=== PATIENT | male | born 1960 | race Caucasian/White ===

== ENCOUNTER 2024-09-19 14:32 | Inpatient (IN) | payer OTHER, MEDICARE, SELFPAY ==
[2024-09-19] VITALS (27 sets, daily range): BP systolic 111–156; BP diastolic 64–100; PULSE 58–102; RESP 12–24; TEMP 36.3–36.7; O2SAT 95–99; BMI 25.7; BMI 24.2
--- NOTE | 2024-09-19 14:33 | EKG12_ITS ---
Test Reason : STROKE Blood Pressure : */* mmHG Vent. Rate : 84 BPM Atrial Rate : 84 BPM P-R Int : 160 ms QRS Dur : 82 ms QT Int : 366 ms P-R-T Axes : 71 18 16 degrees QTcB Int : 432 ms Normal sinus rhythm Inferior infarct , age undetermined Abnormal ECG Confirmed by JEREL STERLING MD ([id number]), telegraph editor OLIVIA CHATMAN ([id number]) on 09/22/2024 9:16:50 AM Referred By: Confirmed By: JEREL STERLING MD
--- NOTE | 2024-09-19 14:33 | CT_ITS ---
PROCEDURE: STROKE BRAIN/HEAD WITHOUT CONT 09/19/2024 REASON FOR EXAM: NEURO DEFICIT, ACUTE, STROKE SUSPECTED TECHNIQUE: STROKE BRAIN/HEAD WITHOUT CONT Coronal and Sagittal reconstruction series were provided. One or more dose reduction techniques were used (e.g., Automated exposure control, adjustment of the mA and/or kV according to patient size, use of iterative reconstruction technique. RADIATION DOSE SUMMARY: CTDlvol: 45 mGy DLP: 1575 mGycm COMPARISON: None FINDINGS: Brain: There is no evidence of hemorrhage, acute ischemia or mass. No extra- axial fluid collection, midline shift or mass effect. Minimal low-density in the periventricular white matter. CSF Spaces: Mild generalized cerebral atrophy Sinuses/Mastoids: Clear Bones: No fracture. CT/STROKE Brain/Head without Cont IMPRESSION: 1. No evidence of intracranial hemorrhage or acute ischemia. 2. Minimal changes of chronic microvascular ischemia and volume loss. The findings and impression of the report were called directly to Dr. Steele at 2:50 p.m. Eastern standard time. Reading Location: [id number]
--- NOTE | 2024-09-19 14:35 | ED.VIS.STROK ---
HPI History of Present Illness Chief Complaint: Stroke Alert Informant: patient and EMS Onset/Context/Timing Onset: Today Context: Sudden Onset Timing: Continuous Quality and Location: Positive for Right Facial Droop and Slurred Speech Current Severity: Severe Maximum Severity: Severe Associated Symptoms Associated Symptoms: Positive for Headache; Negative for Nausea, Vomiting or Chest Pain Narrative Narrative: 64-year-old male with history of CAD, on Plavix and aspirin. Recent acute 4.0s Plavix held just restarted. Today was driving and felt he could throw up and he had sudden onset of slurred speech and right facial droop. Last known well time is 2 PM. Prior similar symptoms: No Recent Illness/Hospitalization: No PFSH PFSH Allergy/AdvReac Type Severity Reaction Status Date / Time Unable to Assess Allergy Verified 09/19/24 14:40 ROS ROS ED ROS Narrative Denies recent illness. Constitutional Constitutional ED: Denies chills or fever(s) Eyes Eyes: Denies blurry vision ENT ENT ED: Denies ear pain Cardiovascular Cardiovascular: Denies chest pain Respiratory/Chest Respiratory/Chest: Denies cough or dyspnea Gastrointestinal Gastrointestinal: Denies abdominal pain Genitourinary Genitourinary ED: Denies dysuria or hematuria Musculoskeletal Musculoskeletal: Denies arthralgias Integumentary Denies abscess or Abrasions Neurologic Neurologic: Reports headache(s) Psychiatric Psychiatric: Denies anxiety Endocrine Endocrinology: Denies polydipsia Hematologic/Lymphatic Hematologic/Lymphatic: Denies easy bleeding, easy bruising or lymphadenopathy Allergic/Immunologic Allergic/Immunologic ED: Denies mouth swelling or urticaria EXAM Physical Exam Narrative Exam Narrative: 64-year-old male brought in by EMS sitting upright in cot in the triage ambulance bay. H EENT exam pupils round react light. Extra motions are intact. He does have a right facial droop. He is very slurred speech very difficult to understand. Moist mucous membranes. No trauma to his face or scalp. Neck nontender. Lungs clear to auscultation bilaterally. Heart regular rhythm rate about 80 no murmur. Chest wall and ribs nontender. Abdomen soft nontender. Moving all 4 extremities. Normal industrial painter strength bilaterally. Normal dorsi plantarflexion. Neurologically he is awake. He has very slurred speech and right facial droop. He has normal strength of his upper and lower extremities. Const Vital Signs: 09/19/24 14:33 09/19/24 14:36 09/19/24 14:43 Temperature 97.8 F Temperature Source Temporal Pulse Rate 102 H 89 Respiratory Rate 18 21 H Blood Pressure 156/98 H 150/88 H Blood Pressure Mean 117 108 Blood Pressure Source Monitor Blood Pressure Position Semi-Fowlers Blood Pressure Location Left Arm Pulse Ox 98 95 Oxygen Delivery Method Room Air Room Air Room Air 09/19/24 14:53 09/19/24 14:58 Temperature Temperature Source Pulse Rate 89 Respiratory Rate 20 H Blood Pressure 150/88 H 140/97 H Blood Pressure Mean 111 Blood Pressure Source Monitor Blood Pressure Position Semi-Fowlers Blood Pressure Location Left Arm Pulse Ox 97 Oxygen Delivery Method Room Air Positive well nourished and well developed; Negative for obese, cachectic, contractures or unkempt General Appearance ED: well developed; Negative for unkempt, cachectic, contractures or NAD Nutritional Appearance: Negative for cachectic or obese HEENT Reports moist mucous membranes atraumatic Eyes PERRL and EOMs intact bilaterally Eyes Narrative: Right facial droop. Neck no lymphadenopathy, supple and no JVD General: Negative for tenderness Chest Wall inspection of chest normal and palpation of chest normal Resp normal respiratory effort and clear to auscultation bilaterally Cardio no murmurs Rate: regular rate Rhythm: regular rhythm GI normal to inspection, nondistended, normoactive bowel sounds, soft to palpation, non-tender, non-distended and no masses Auscultation: normoactive bowel sounds Palpation: Negative for tender, guarding or rebound tenderness present Back/Spine no CVA tenderness Extremity normal to inspection General Extremety ED: Negative for deformity, edema or tenderness General Extremity: Negative for deformity or edema Neuro Neuro Narrative: Right facial droop. Slurred speech. Sensorium / Orientation: alert Speech: Negative for speech normal Motor Exam: strength 5/5 throughout Psych mental status grossly normal Appearance: Negative for unkempt Skin no wounds General Skin Exam: Negative for jaundice Rashes: no rashes Trauma: Negative for abrasion or laceration MDM MDM MDM Narrative Medical decision making narrative: 64-year-old male history of CAD on Plavix and aspirin with strokelike symptoms began around 2 PM. He is admitted to stroke candidate. He is currently in radiology and a CT of his brain and CTA. I will speak to the stroke neurologist when he gets back from CAT scan of his testing. Repeat exam post CAT scan has been no change. He is still has very slurred speech and right facial droop. He can industrial painter with his hands and do dorsi plantarflexion of his feet. I spoken with the patient also his and daughter who are now in the emergency department. They spoken to another family member that is a nurse practitioner. All are okay with him getting TNK. I discussed that with the pharmacist who also knows the patient is currently on aspirin and Plavix. We are still waiting the [facility] neurology evaluation. TNK has been ordered. Repeat exam around 2:55 PM. Patient is already received his TN K. His speech is improving. His facial droop is improving. He has been evaluated by the [facility] neurologist. Patient will be admitted. Currently his NIH is back to 0. No facial droop. Speech is back to normal. History & Record Review Discussion w/independent historian: EMS personnel and Patient Lab Data Attestation: I reviewed the patient's lab results. Lab results narrative: CBC white count 8. H&H 15 and 43. Platelets 284. PT/INR [address] brain no acute bleed. Labs: Laboratory Results - last 24 hr 09/19/24 14:45 WBC 8.3 RBC 4.69 Hgb 15.3 Hct 43.1 MCV 91.9 MCH 32.6 H MCHC 35.5 RDW Std Deviation 40.7 RDW Coeff of Jacquelyn 12.1 Plt Count 284 MPV 9.8 Immature Gran % (Auto) 0.400 Neut % (Auto) 55.3 Lymph % (Auto) 30.1 Bulloch % (Auto) 12.0 H Eos % (Auto) 1.5 Baso % (Auto) 0.7 Absolute Neuts (auto) 4.6 Absolute Lymphs (auto) 2.48 Nucleated RBC % 0 PT 13.8 INR 1.0 APTT 26.8 Radiography Diagnostic Testing: Clinical Impression(s) from Imaging Studies Brain CT 09/19/24 14:33 IMPRESSION: 1. No evidence of intracranial hemorrhage or acute ischemia. 2. Minimal changes of chronic microvascular ischemia and volume loss. The findings and impression of the report were called directly to Dr. Steele at 2:50 p.m. Eastern standard time. Reading Location: [facility] Head/Neck CTA 09/19/24 14:38 IMPRESSION: 1. Atherosclerosis of the carotid bulb and proximal internal carotid arteries. Less than 50% narrowing on the left and less than 25% narrowing on the right. 2. No large vessel occlusion. No aneurysm or stenosis. Reading Location: [facility] Rhythm Strip Rhythm Strip: Sinus Rhythm Rate: 84 Ectopy: None EKG Initial EKG: Attestation: I personally reviewed and interpreted this EKG as follows: Interpretation: Sinus Rhythm and No Acute Injury Pattern Comments: NSR rate of 84. No acute signs of TX nor ischemia nor dysrhythmia. Critical Care Time Critical Care Time: Yes Critical care time (excluding procedures): 30-74 minutes, Including time spent:, Discussing w/Patient &/or Family/Senior Air Director, Discussing w/Consultants, Arranging Admission or Transfer, Performing Direct Patient Care at Bedside and - (35 minutes.) Discharge Plan Triage Chief Complaint: Stroke Alert ED Provider: Luis Antonio Steele Dx/Rx/DC Orders Clinical Impression: Acute stroke due to ischemia, Dysarthria, Facial droop, History of CAD (coronary artery disease) Primary Care Provider: Care Physician,Zina Primary Referrals: NOT,DEFINED [Non-Staff] - Print Language: Afghan NIHSS NIHSS 1a. Level of Consciousness: 0 - Alert; keenly responsive 1b. LOC Questions: 0 - Answers BOTH questions correctly 1c. LOC Commands: 0 - Performs BOTH tasks correctly 2. Best Gaze: 0 - Normal 3. Visual: 0 - No visual loss 4. Facial Palsy: 2 - Partial paralysis (total or near-total paralysis of lower face) 5a. Left Arm: 0 - No drift; arm holds 90 (or 45) degrees for full 10 seconds 5b. Right Arm: 0 - No drift; arm holds 90 (or 45) degrees for full 10 seconds 6a. Left Le - No drift; leg holds 30-degree position for full 5 seconds 6b. Right Le - No drift; leg holds 30-degree position for full 5 seconds 7. Limb Ataxia: 0 - Absent 8. Sensory: 0 - Normal; no sensory loss 9. Best Language: 2 - Severe aphasia; 10. Dysarthria: 0 - Normal 11. Extinction and Inattention: 0 - No abnormality Total: 4 Stroke Questions Stroke Team Activated: Yes Reviewed Inclusion/Exclusion criteria: Yes No contraindications from thrombolytic administration: No Informed the patient and/or family of all associated risks, benefits, & alternatives to IV Thrombolytic Therapy. Patient and/or family voluntarily consent to the administration of IV Thrombolytic Therapy: Yes
--- NOTE | 2024-09-19 14:38 | CT_ITS ---
PROCEDURE: STROKE CTA HEAD AND NECK W/CON 09/19/2024 REASON FOR EXAM: STROKE TECHNIQUE: STROKE CTA HEAD AND NECK W/CON Multiplanar Sagittal and Coronal images were obtained. 3D post processing was performed CONTRAST: Isovue 370 VOLUME: 100 mL One or more dose reduction techniques were used (e.g., Automated exposure control, adjustment of the mA and/or kV according to patient size, use of iterative reconstruction technique). RADIATION DOSE SUMMARY: CTDlvol: 42 mGy DLP: 705 mGycm COMPARISON: September 19, 2024 FINDINGS: Aortic Arch: Normal size and branching pattern. Mild atherosclerotic plaque. Brachiocephalic and Subclavians: Mild atherosclerotic plaque without significant stenosis. The left subclavian is tortuous at its origin. RIGHT Carotid: Right CCA: Eccentric mural plaque at the carotid bulb with less than 25% narrowing. Right ICA: Mild calcified and soft plaque. Maximum stenosis (NASCET): Less than 25 % Right ECA: Mild calcified and soft plaque. LEFT Carotid: Left CCA: Eccentric mural plaque at the carotid bulb to include some soft plaque. Less than 50% narrowing. Left ICA: Mild calcified and soft plaque. Maximum stenosis (NASCET): 16-49 % Left ECA: Unremarkable. Vertebrals: Left is dominant. RIGHT Vertebral: PICA termination. Otherwise patent. LEFT Vertebral: Patent, dominant. Anatomy: Patent right posterior communicating artery. Otherwise unremarkable Aneurysm or avm: No intracranial aneurysms or large vascular malformations are identified. Anterior cerebral arteries: Unremarkable Middle cerebral arteries: Unremarkable. Basilar artery: Unremarkable. Posterior cerebral arteries: Unremarkable. Other major branches of the posterior circulation: Unremarkable. Major venous structures: Unremarkable. Other findings: Neck: No lymphadenopathy. Lungs: Lung apices are clear. Bones: Bones are degenerative. CT/STROKE CTA Head AND Neck W/Con IMPRESSION: 1. Atherosclerosis of the carotid bulb and proximal internal carotid arteries. Less than 50% narrowing on the left and less than 25% narrowing on the right. 2. No large vessel occlusion. No aneurysm or stenosis. Reading Location: [facility]
[2024-09-19] MEDS: 0.9% Saline Lock 10 ML Syringe IV ×2 (14:52→14:54)
[2024-09-19] MEDS: TENECTEPLASE 2851.2 MG IV (14:53)
[2024-09-19] MEDS: 0.9% Normal Saline (1000mL) 1,000 ML 100 ML IV (14:55)
--- NOTE | 2024-09-19 14:57 | ED.RN ---
catheter attempted to be placed at this time, unable to advance.
[2024-09-19 15:03] LABS: Hematocrit 43.1 % (40-54); Hemoglobin 15.3 g/dL (13.0-16.5); Immature Granulocytes Count 0.030 X10^3/uL (0.0-0.0); Mean Corp Hgb Conc 35.5 g/dL (32-36); Mean Corpuscular Volume 91.9 fL (80-94); Mean Platelet Vol. 9.8 fl (6.2-12.0); NRBC Flagged by Analyzer 0 % (0-5); Platelet Count 284 K/mm3 (150-450); RBC Distribution Width CV 12.1 % (11.6-14.6); RBC Distribution Width SD 40.7 fl (35.1-43.9); Red Blood Count 4.69 M/mm3 (4.6-6.2); White Blood Count 8.3 K/mm3 (4.4-11.0)
[2024-09-19 15:07] LABS: Prothrombin Time (Protime)PT. 13.8 SECONDS (11.7-14.9)
[2024-09-19 15:08] LABS: Partial Thromboplast Time 26.8 Seconds (24.1-36.2)
[2024-09-19 15:26] LABS: Anion Gap 15 (5-15); BUN 24 mg/dL (4-19); BUN/Creat Ratio 21.5 RATIO (10-20); Calcium,Total 9.8 mg/dL (7.6-11.0); Carbon Dioxide 21.8 mmol/L (21.0-32.0); Chloride 104 mmol/L (98-108); Estimated Creatinine Clearance 66.95 ml/min (50-250); Glucose 122 mg/dL (70-99); Potassium 3.6 mmol/L (3.3-5.1)
--- NOTE | 2024-09-19 15:27 | CHAPLAIN ---
Type of Pastoral Visit ___ Initial Visit ___ Follow-up Visit ___ On-call Visit ___ General Patient Visit ___ Spiritual Assessment ___ Family Conference ___ Bereavement _x__ Rapid Response ___ Code Blue ___ Other (describe below) Pastoral Care Referral From ___ Patient ___ Family ___ Nurse ___ Physician ___ Fire Alarm Repairer ___ Senior Telecommunications Consultant _x__ Other (describe below) Sacrament/Intervention ___ Active listening ___ Anointing ___ Buddhism ___ Bereavement ___ Communion ___ Diamante exploration ___ ___ Life review ___ Prayer ___ Reconciliation ___ Sacrament of Sick _x__ Supportive presence ___ Wedding ___ Other (describe below) Pastoral Comments responded to stroke alert in the ED and was present when family members arrived on the scene; assisted spouse in making contacts with staff; was present for any needs presented as patient is being evaluated by staff
[2024-09-19 15:41] LABS: Troponin T High Sensitivity < 6 ng/L (<=22)
--- NOTE | 2024-09-19 16:09 | ED.RN ---
Per family at bedside pt's speech is at baseline. He always mumbles a little. Pt also had recent dental worl
--- NOTE | 2024-09-19 16:19 | HP.PCM.HOS_ITS ---
HPI - General General Date of Admission: 09/19/24 Date of Service: 09/19/24 Chief Complaint: Aphasia, right facial droop and r arm weakness HPI Narrative EMMANUEL ELY, is a 64-year-old male with a history of coronary artery disease on Plavix and aspirin, recent tooth extraction so Plavix had been held and he just restarted, presented to [facility] ED 09/19/2024 with right facial droop and slurred speech. He was driving today and felt like he could throw up and suddenly had slurred speech and right facial droop with last known well at 2 PM so he came to the ED. In the ED NIH of 4, given the significant difficulties with speech TNK was administered and patient evaluated by teleneurology. In the ED vitals, labs, imaging without significant abnormality. Patient symptoms completely resolved. Hospitalist contacted for admission for post TNK monitoring and stroke workup. Patient evaluated at bedside. He reports he was passenger in the car when he suddenly could not get words out, had right facial droop and right arm weakness. Denied any vision changes or headache, no chest pain. Currently reports symptoms completely resolved, has some bleeding where he had a tooth extraction in his mouth but it is currently manageable with pressure and gauze. Patient denies any other new acute complaints [facility] Home Medications ?Medication ?Instructions ?Recorded ?Last Taken ?Type aspirin 81 mg tablet,delayed 81 mg PO DAILY heart heal th 09/19/24 09/13/24 History release clopidogrel 75 mg tablet 75 mg PO DAILY blood thinner 09/19/24 09/18/24 History rosuvastatin 40 mg tablet 40 mg PO DAILY cholesterol 0 09/19/24 09/18/24 History Allergy/AdvReac Type Severity Reaction Status Date / Time Unable to Assess Allergy Verified 09/19/24 14:40 Social History Smoking Status: Never smoker ROS ROS Narrative General: Denies fever/chills HENT: Denies headache, denies stuffy nose, denies sore throat EYES: Denies changes in vision Resp: Denies cough, denies shortness of breath Cardiac: Denies chest pain GI: Denies abdominal pain, denies changes in bowel, denies nausea/vomiting : Denies changes in urination Extremity: Denies swelling MSK: Denies weakness, now, did have weakness in right upper extremity and right- sided facial droop, aphasia resolved Neuro: Denies any numbness/tingling Heme: Denies any bleeding or bruising Skin: Denies rashes Psychiatric: No complaints voiced Vital Signs Vital Signs Vital Signs: 09/19/24 14:33 09/19/24 14:36 09/19/24 14:43 Temperature 97.8 F Temperature Source Temporal Pulse Rate 102 H 89 Respiratory Rate 18 21 H Blood Pressure 156/98 H 150/88 H Blood Pressure Mean 117 108 Blood Pressure Source Monitor Blood Pressure Position Semi-Fowlers Blood Pressure Location Left Arm Pulse Ox 98 95 Oxygen Delivery Method Room Air Room Air Room Air 09/19/24 14:53 09/19/24 14:58 09/19/24 15:13 Temperature Temperature Source Pulse Rate 89 83 Respiratory Rate 20 H 24 H Blood Pressure 150/88 H 140/97 H 136/93 H Blood Pressure Mean 111 107 Blood Pressure Source Monitor Monitor Blood Pressure Position Semi-Fowlers Semi-Fowlers Blood Pressure Location Left Arm Left Arm Pulse Ox 97 95 Oxygen Delivery Method Room Air Room Air 09/19/24 15:26 09/19/24 15:28 09/19/24 15:43 Temperature 97.8 F 97.5 F L Temperature Source Temporal Oral Pulse Rate 81 76 79 Respiratory Rate 16 12 14 Blood Pressure 156/68 H 144/98 H 146/85 H Blood Pressure Mean 97 113 105 Blood Pressure Source Monitor Monitor Blood Pressure Position Semi-Fowlers Semi-Fowlers Blood Pressure Location Left Arm Left Arm Pulse Ox 96 97 96 Oxygen Delivery Method Room Air Room Air Room Air 09/19/24 15:58 Temperature 98 F Temperature Source Temporal Pulse Rate 79 Respiratory Rate 15 Blood Pressure 137/82 H Blood Pressure Mean 100 Blood Pressure Source Monitor Blood Pressure Position Semi-Fowlers Blood Pressure Location Left Arm Pulse Ox 96 Oxygen Delivery Method Room Air Weight Weight: 79 kg Body Mass Index (BMI) 25.7 Physical Exam Narrative General: Alert, oriented, no apparent distress HEENT: Atraumatic, normocephalic, does have the tooth extractions, has some bruising but presently has gauze to evaluate back and mouth and hold pressure Eyes: Anicteric, normal conjunctiva, extraocular movements intact, pupils equal Neck: Supple Respiratory: Clear to auscultation bilaterally, normal respiratory effort Cardiovascular: Regular rate and rhythm GI: Soft, nontender, nondistended Extremities: No edema Musculoskeletal: Strength 5 out of 5 in right upper extremity, 5 out of 5 left upper extremity, 5 out of 5 right lower extremity, 5 out of 5 left lower extremity Neuro: No overt focal neurological deficits, cranial nerves II through XII intact, [id number] without significant difficulty bilaterally Skin: No rashes appreciated Psych: Cooperative Results Lab / Micro Data 09/19/24 14:45 09/19/24 14:45 Labs: Laboratory Results - last 24 hr 09/19/24 14:45: WBC 8.3, RBC 4.69, Hgb 15.3, Hct 43.1, MCV 91.9, MCH 32.6 H, MCHC 35.5, RDW Std Deviation 40.7, RDW Coeff of Jacquelyn 12.1, Plt Count 284, MPV 9.8, Immature Gran % (Auto) 0.400, Neut % (Auto) 55.3, Lymph % (Auto) 30.1, Dickson % (Auto) 12.0 H, Eos % (Auto) 1.5, Baso % (Auto) 0.7, Absolute Neuts (auto) 4.6, Absolute Lymphs (auto) 2.48, Nucleated RBC % 0, PT 13.8, INR 1.0, APTT 26.8, Sodium 140, Potassium 3.6, Chloride 104, Carbon Dioxide 21.8, Anion Gap 15, BUN 24 H, Creatinine 1.10, Estim Creat Clear Calc 66.95, Est GFR (MDRD) Non-Af 74, B UN/Creatinine Ratio 21.5 H, Glucose 122 H, Calcium 9.8, Troponin T High Sens < 6 Rhythm Strip Rhythm Strip: Sinus Rhythm Rate: 84 Ectopy: None Imaging Radiology Impression Brain CT 09/19/24 14:33 IMPRESSION: 1. No evidence of intracranial hemorrhage or acute ischemia. 2. Minimal changes of chronic microvascular ischemia and volume loss. The findings and impression of the report were called directly to Dr. Steele at 2:50 p.m. Eastern standard time. Reading Location: [id number] Head/Neck CTA 09/19/24 14:38 IMPRESSION: 1. Atherosclerosis of the carotid bulb and proximal internal carotid arteries. Less than 50% narrowing on the left and less than 25% narrowing on the right. 2. No large vessel occlusion. No aneurysm or stenosis. Reading Location: [id number] Assessment & Plan Assessment/Plan (1) Acute stroke due to ischemia: PLAN: Plan #Acute CVA s/p TNK -Right sided facial droop and slurred speech status post TNK, symptoms resolved -Admit to ICU w/ strict blood pressure parameters -Blood pressure must be maintained at or below 180/105 mmHg during the first 24 hours, Labetolol prn for BP goals, nicardipine if unable to manage w/ labetolol -VS and neurochecks per protocol, Vital signs and neurologic status should be checked every 15 minutes for two hours, then every 30 minutes for six hours, then every 60 minutes until 24 hours from the start of thrombolysis -Ta catheter placed, bed rest for 24 hours -C/s building economist -C/s Neurology -MRI ordered, will need repeat imaging prior to transfer to the floor and prior to any antithrombotic or antiplatelet agents -Echo ordered, PT/OT/speech -Atorvastatin -Lipid panel in AM # History of coronary artery disease -Patient on Plavix and aspirin -Received TN K, will hold as above # Tooth extraction -Monitor bleeding, supportive care - Presently manageable with patient holding pressure with gauze, no copious bleeding or difficulty maintaining airway #DVT ppx: SCDs Charges/Coding Visit Charges Inpatient E&M: 85980 Init Hosp L2
--- NOTE | 2024-09-19 16:43 | ECHOD_ITS ---
Reason For Study Reason For Study: TIA/CVA Procedure This was a 2D Doppler, Color Flow transthoracic echocardiogram. Exam performed portable in ICU/CCU. Left Ventricle Normal left ventricle. Left ventricular systolic function is normal. The LV ejection fraction is 65 %. Right Ventricle Normal right ventricle. Normal systolic function. Right ventricular systolic pressure estimated to be 21 mmHg. Atria Normal left atrium. Normal right atrium. Mitral Valve The mitral valve is structurally normal. No prolapse or stenosis seen. No mitral valve insufficiency. Tricuspid Valve Normal tricuspid valve. Aortic Valve Moderate diffuse aortic valve calcification. Bicuspid aortic valve. There is no aortic stenosis. Pulmonic Valve Mild stenosis of the pulmonic valve. Mild (1+) pulmonic valve insufficiency. Great Vessels Inferior vena cava collapse with respiration. Pericardium/Pleural Epicardial fat. MMode/2D Measurements & Calculations LVIDd: 4.7 cm IVSd: 1.2 cm LVOT diam: 2.0 cm LVIDs: 2.7 cm LVPWd: 0.89 cm LVOT area: 3.3 cm2 RVDd: 4.5 cm FS: 41.6 % asc Aorta Diam: 3.2 cm LAV(MOD-bp): 28.4 ml LVAd ap4: 26.0 cm2 LAV(MOD-bp) Indexed: 14.6 ml/m2 LVLd ap4: 8.2 cm LAV(MOD-sp2): 27.3 ml EDV(MOD-sp4): 68.5 ml LAV(MOD-sp4): 29.6 ml EDV(sp4-el): 69.8 ml LVAs ap4: 14.2 cm2 LVLs ap4: 7.0 cm ESV(MOD-sp4): 24.6 ml ESV(sp4-el): 24.5 ml EF(MOD-sp4): 64.1 % EF(sp4-el): 64.9 % LVAd ap2: 22.5 cm2 SV(MOD-sp4): 43.9 ml SV(MOD-sp2): 37.8 ml LVLd ap2: 7.9 cm SI(MOD-sp4): 22.5 ml/m2 SI(MOD-sp2): 19.4 ml/m2 EDV(MOD-sp2): 54.8 ml EDV(sp2-el): 54.9 ml LVAs ap2: 11.7 cm2 LVLs ap2: 6.7 cm ESV(MOD-sp2): 17.0 ml ESV(sp2-el): 17.3 ml EF(MOD-sp2): 69.0 % SV(sp4-el): 45.3 ml Ao sinus diam: 3.[address] Junction: 2.5 cm LA dimension(2D): 3.8 cm LA A4 area: 13.0 cm2 RA A4 area: 11.5 cm2 TAPSE: 1.7 cm Time Measurements MV dec time: 0.24 sec Doppler Measurements & Calculations MV E max dhaval: 70.4 cm/sec Lat Peak E' Dhaval: 12.1 cm/sec Med Peak E' Dhaval: 10.1 cm/sec MV A max dhaval: 68.2 cm/sec E/E' lat: 5.8 E/E' med: 7.0 MV E/A: 1.0 MV dec slope: 296.7 cm/sec2 Ao V2 max: 192.2 cm/sec LV V1 max: 109.6 cm/sec Ao max P.8 mmHg LV V1 max P.8 mmHg Ao V2 mean: 140.1 cm/sec LV V1 mean P.3 mmHg Ao mean P.4 mmHg LV V1 mean: 69.2 cm/sec Ao V2 VTI: 40.8 cm LV V1 VTI: 24.1 cm AV (velocity ratio): 0.59 JAN(I,D): 1.9 cm2 JAN(V,D): 1.9 cm2 SV(LVOT): 79.2 ml PA V2 max: 117.6 cm/sec PI end-d dhaval: 56.5 cm/sec TR max dhaval: 222.2 cm/sec TR max P.7 mmHg ECHO/Echo Complete Interpretation Summary The LV ejection fraction is 65 %. Normal left ventricle. Epicardial fat. Mild (1+) pulmonic valve insufficiency. Ordering Physician: Nicole Estrada Performed By: Nasrin Gomes RDCS
[2024-09-19 18:42] LABS: Troponin T High Sens 2 HR 7 ng/L (<=22)
--- NOTE | 2024-09-19 19:21 | CON.PCM.CC_ITS ---
HPI Consult Data Date of Consult: 09/19/24 HPI Narrative HPI Narrative: EMMANUEL ELY, is a 64 M w/ CAD s/p PCI on ASA/plavix who was admitted for possible stroke. He had tooth extraction done yesterday and was off ASA/plavix for this, only just restarted now. While being driven in the car he developed sudden R facial droop, slurred speech, nausea and so was brought to [place] ED. He was seen by teleneurology and was given TNK for suspected CVA. Since that he has had near complete resolution of all of his sx, and feels nearly back to baseline. No prior h/o CVA. He has had some bleeding from his tooth after TNK, but improving with packing. Has not smoked tobacco in decades, denies heavy EtOH use. ROS: 12-point ROS negative except as per HPI PFSH Home Medications ?Medication ?Instructions ?Recorded ?Last Taken ?Type aspirin 81 mg tablet,delayed 81 mg PO DAILY heart heal th 09/19/24 09/13/24 History release clopidogrel 75 mg tablet 75 mg PO DAILY blood thinner 09/19/24 09/18/24 History rosuvastatin 40 mg tablet 40 mg PO DAILY cholesterol 0 09/19/24 09/18/24 History Allergy/AdvReac Type Severity Reaction Status Date / Time Unable to Assess Allergy Verified 09/19/24 14:40 Social History Smoking Status: Never smoker Objective Data Objective Data Vital Signs: Vital Signs Last response 3 Temperature 36.7 C 09/19/24 18:13 Temperature Source Temporal 09/19/24 18:13 Pulse Rate 76 09/19/24 18:43 Respiratory Rate 16 09/19/24 18:43 Blood Pressure 135/64 H 09/19/24 18:43 Blood Pressure Mean 87 09/19/24 18:43 Blood Pressure Source Monitor 09/19/24 18:43 Blood Pressure Position Semi-Fowlers 09/19/24 18:43 Blood Pressure Location Right Arm 09/19/24 18:43 Pulse Ox 99 09/19/24 18:43 Oxygen Delivery Method Room Air 09/19/24 18:43 I&O: I&O Last 24 Hours 3 09/18/24 09/19/24 09/19/24 23:59 11:59 23:59 Intake Total 0 / 0 Output Total 200 / 200 Balance -200 / -200 I&O: Total Stay 3 09/19/24 14:32 thru 09/19/24 18:00 Intake Total 0 Output Total 200 Balance -200 Current Meds Ordered / Administered: Current meds ordered / Administered 3 Generic Name Dose Route Start Last Admin Trade Name Freq PRN Reason Stop Dose Admin Acetaminophen 650 mg 09/19/24 14:43 Acetaminophen 325 Mg Tablet PO X1 PRN Temp > 99.6 F Acetaminophen 650 mg 09/19/24 16:43 Acetaminophen 325 Mg Tablet PO Q6H PRN PRN Pain 1-10 Or Fever >100.7 Albuterol Sulfate 2.5 mg 09/19/24 16:43 Albuterol 2.5 Mg/3 Ml Vial.Neb. INHALATION Q2H PRN PRN SOB &/OR WHEEZING Atorvastatin Calcium 80 mg 09/19/24 22:00 Atorvastatin Calcium 80 Mg Tablet PO QHS JASE Diphenhydramine HCl 50 mg 09/19/24 14:43 Diphenhydramine 50 Mg/Ml Syringe IV 09/20/24 14:43 X1 PRN Allergic Reaction Epinephrine HCl 0.3 mg 09/19/24 14:43 Epi Pen (Equiv) 0.3 Mg Syringe IM 09/20/24 14:43 X1 PRN Allergic Reaction Famotidine 20 mg/ Sodium 10 mls @ 300 mls/hr 09/19/24 14:43 Chloride IV 09/20/24 14:43 X1 PRN Allergic Reaction Nicardipine/Sodium Chloride 20 mg in 200 mls @ 50 mls/hr 09/19/24 14:43 Cardene-Tin 20 Mg/200 Ml Soln CONT INF 09/20/24 14:43 Q4H PRN See Instructions Protocol 5 MG/HR Sodium Chloride 1,000 mls @ 100 mls/hr 09/19/24 14:45 09/19/24 14:55 IV 100 mls/hr .Q10H JASE Administration Labetalol HCl 20 mg 09/19/24 14:32 Labetalol 20 Mg/4 Ml Vial IV 09/20/24 14:33 X1 PRN BLOOD PRESSURE Labetalol HCl 20 mg 09/19/24 14:43 Labetalol 20 Mg/4 Ml Vial IV 09/20/24 14:43 X1 PRN BLOOD PRESSURE Melatonin 10 mg 09/19/24 16:43 Melatonin 10 Mg Tablet PO QHS PRN PRN INSOMNIA Methylprednisolone Sodium Succinate 125 mg 09/19/24 14:43 Methylprednisolone 125 Mg/2 Ml Vial IV 09/20/24 14:43 X1 PRN Allergic Reaction Ondansetron HCl 4 mg 09/19/24 16:43 Ondansetron 4 Mg/2 Ml Vial IV Q8H PRN PRN NAUSEA/VOMITING Senna/Docusate Sodium 2 tablet 09/19/24 16:43 Senna/Docusate Sodium 1 Tablet PO BID PRN PRN Constipation Sodium Chloride 10 - 40 ml 09/19/24 17:27 0.9% Saline Lock 10 Ml Syringe IV UD PRN SALINE FLUSH Lab / Micro Data 09/19/24 14:45 09/19/24 14:45 Labs: Laboratory Results - last 24 hr 09/19/24 14:45: WBC 8.3, RBC 4.69, Hgb 15.3, Hct 43.1, MCV 91.9, MCH 32.6 H, MCHC 35.5, RDW Std Deviation 40.7, RDW Coeff of Jacquelyn 12.1, Plt Count 284, MPV 9.8, Immature Gran % (Auto) 0.400, Neut % (Auto) 55.3, Lymph % (Auto) 30.1, [place] % (Auto) 12.0 H, Eos % (Auto) 1.5, Baso % (Auto) 0.7, Absolute Neuts (auto) 4.6, Absolute Lymphs (auto) 2.48, Nucleated RBC % 0, PT 13.8, INR 1.0, APTT 26.8, Sodium 140, Potassium 3.6, Chloride 104, Carbon Dioxide 21.8, Anion Gap 15, BUN 24 H, Creatinine 1.10, Estim Creat Clear Calc 66.95, Est GFR (MDRD) Non-Af 74, B UN/Creatinine Ratio 21.5 H, Glucose 122 H, Calcium 9.8, Troponin T High Sens < 6 09/19/24 17:25: Troponin T Hi Sens 2 Hr 7 Rhythm Strip Rhythm Strip: Sinus Rhythm Rate: 84 Ectopy: None Imaging Radiology Impression Brain CT 09/19/24 14:33 IMPRESSION: 1. No evidence of intracranial hemorrhage or acute ischemia. 2. Minimal changes of chronic microvascular ischemia and volume loss. The findings and impression of the report were called directly to Dr. Steele at 2:50 p.m. Eastern standard time. Reading Location: [id number] Head/Neck CTA 09/19/24 14:38 IMPRESSION: 1. Atherosclerosis of the carotid bulb and proximal internal carotid arteries. Less than 50% narrowing on the left and less than 25% narrowing on the right. 2. No large vessel occlusion. No aneurysm or stenosis. Reading Location: [id number] Assessment and Plan . Assessment and plan: Physical Exam: Gen - NAD, well-developed HEENT - MMM. Sclera anicteric Resp - CTAB. Breathing nonlabored CV - RRR. No m/g/r Abd - Soft, NT, ND Ext - No c/c/e. Skin - No rashes? Neuro - Facial drop, slurred speech resolved now. I have reviewed the pertinent vital sign, laboratory, and imaging data. ASSESSMENT: # Suspected acute CVA/TIA # CAD s/p PCI - on ASA/plavix but recently held for tooth extraction # Recent tooth extraction PLAN: -s/p TNK. Monitor in ICU with Q1h neuro checks -f/u additional neuro recs -Keep SBP < 180 -Obtain MR brain, repeat CT head in 24 hrs -Echo w/ bubble -PT/OT/ST tmrw if stable -Monitor for worsening oropharyngeal bleed after TNK given recent tooth extraction Proph DVT/GI: SCDs Critical Care Time: 60 mins The entirety of this encounter was done via telemedicine using both audio and video. Consent was obtained.
[2024-09-19 20:06] LABS: Troponin T High Sens 4 HR 7 ng/L (<=22)
[2024-09-20] VITALS (25 sets, daily range): BP systolic 96–135; BP diastolic 44–99; PULSE 50–87; RESP 13–21; TEMP 36.3–36.9; O2SAT 93–99; BMI 24.2; BMI 24.1
[2024-09-20] MEDS: 0.9% Normal Saline (1000mL) 1,000 ML 100 ML IV ×2 (00:41→11:16)
[2024-09-20 04:07] LABS: Hematocrit 38.3 % (40-54); Hemoglobin 13.0 g/dL (13.0-16.5); Immature Granulocytes Count 0.020 X10^3/uL (0.0-0.0); Mean Corp Hgb Conc 33.9 g/dL (32-36); Mean Corpuscular Volume 93.4 fL (80-94); Mean Platelet Vol. 9.4 fl (6.2-12.0); NRBC Flagged by Analyzer 0 % (0-5); Platelet Count 243 K/mm3 (150-450); RBC Distribution Width CV 12.0 % (11.6-14.6); RBC Distribution Width SD 41.4 fl (35.1-43.9); Red Blood Count 4.10 M/mm3 (4.6-6.2); White Blood Count 9.3 K/mm3 (4.4-11.0)
[2024-09-20 06:32] LABS: Cholesterol 152 mg/dL (<=200); Low Density Lipoprotein Calc. 82 mg/dL; Triglycerides 144 mg/dL; Very Low Density Lipoprotein 29 mg/dL (5-40); cholesterol:hdl ratio screen 3.65
[2024-09-20 07:16] LABS: Anion Gap 12 (5-15); BUN 18 mg/dL (4-19); BUN/Creat Ratio 19.9 RATIO (10-20); Calcium,Total 8.9 mg/dL (7.6-11.0); Carbon Dioxide 20.3 mmol/L (21.0-32.0); Chloride 106 mmol/L (98-108); Estimated Creatinine Clearance 84.49 ml/min (50-250); Glucose 110 mg/dL (70-99); Potassium 3.8 mmol/L (3.3-5.1)
--- NOTE | 2024-09-20 09:31 | PN.NEURO_ITS ---
Assessment and Plan: Neuro Assessment/Plan Telestroke Attending Progress Note (Audio-video interface) 64 y/o man with h/o CAD on ASA and plavix at home and recent tooth extraction on 09/18 (off antiplatelet since 09/13 and resumed only plavix on 09/19) p/w right facial droop and slurring of speech/aphasia. NIHSS-4 and TNK administered. Denied any vision changes or headache, no chest pain. CT head- no acute intracranial process. CTA- no LVO or significant stenosis. LDL-82. A1c-6.2. Today, patient reports feeling better with NIHSS-1 for mild sensory loss in right face. Diagnosis: Acute ischemic stroke s/p TNK, Cryptogenic Plan: Post TNK protocol. Follow up CT head 24hrs and if there is no evidence of bleeding then ASA and plavix can be started. Follow up MRI Brain and TTE. Likely event monitor on discharge. OT/PT/BOOK SALESMAN I personally attended this patient and spent a total time of 30 minutes evaluating this patient including clinical assessment, review of chart, medical history imaging, and determining appropriate treatment and workup. Subject: Neurology Subjective 64 y/o man with h/o CAD on ASA and plavix at home and recent tooth extraction on 09/18 (off antiplatelet since 09/13 and resumed only plavix on 09/19) p/w right facial droop and slurring of speech/aphasia. NIHSS-4 and TNK administered. Denied any vision changes or headache, no chest pain. CT head- no acute intracranial process. CTA- no LVO or significant stenosis. LDL-82. A1c-6.2. Today, patient reports feeling better with NIHSS-1 for mild sensory loss in right face. EEG Results Procedure Details EEG Procedure Details: EMMANUEL ELY is a 64 year old M with a past medical history of , who presents for evaluation of Electroencephalogram on DATE at TIME Objective Data Objective Data Vital Signs: Vital Signs Temp Pulse Resp BP Pulse Ox O2 Del Method 98.2 F 59 L 16 122/74 H 98 Room Air 09/20/24 07:43 09/20/24 08:43 09/20/24 08:43 09/20/24 08:43 09/20/24 08:43 09/20/24 08:43 Oxygen Delivery Method Room Air Weight: 76.3 kg Body Mass Index (BMI) 24.1 Intake & Output: Intake and Output for Last 24 Hours 09/18/24 09/19/24 09/20/24 23:59 23:59 23:59 Intake Total 0 / 0 976.67 / 976.67 Output Total 575 / 575 775 / 775 Balance -575 / -575 201.67 / 201.67 Lab / Micro Data 09/20/24 04:00 09/20/24 04:00 Labs: Laboratory Results - last 24 hr 09/19/24 14:45: WBC 8.3, RBC 4.69, Hgb 15.3, Hct 43.1, MCV 91.9, MCH 32.6 H, MCHC 35.5, RDW Std Deviation 40.7, RDW Coeff of Jacquelyn 12.1, Plt Count 284, MPV 9.8, Immature Gran % (Auto) 0.400, Neut % (Auto) 55.3, Lymph % (Auto) 30.1, [place] % (Auto) 12.0 H, Eos % (Auto) 1.5, Baso % (Auto) 0.7, Absolute Neuts (auto) 4.6, Absolute Lymphs (auto) 2.48, Nucleated RBC % 0, PT 13.8, INR 1.0, APTT 26.8, Sodium 140, Potassium 3.6, Chloride 104, Carbon Dioxide 21.8, Anion Gap 15, BUN 24 H, Creatinine 1.10, Estim Creat Clear Calc 66.95, Est GFR (MDRD) Non-Af 74, B UN/Creatinine Ratio 21.5 H, Glucose 122 H, Calcium 9.8, Troponin T High Sens < 6 09/19/24 17:25: Troponin T Hi Sens 2 Hr 7 09/19/24 18:40: Troponin T Hi Sens 4Hr 7 09/20/24 04:00: WBC 9.3, RBC 4.10 L, Hgb 13.0, Hct 38.3 L, MCV 93.4, MCH 31.7, MCHC 33.9, RDW Std Deviation 41.4, RDW Coeff of Jacquelyn 12.0, Plt Count 243, MPV 9.4, Immature Gran % (Auto) 0.200, Neut % (Auto) 65.5, Lymph % (Auto) 19.4, [place] % (Auto) 12.7 H, Eos % (Auto) 1.6, Baso % (Auto) 0.6, Absolute Neuts (auto) 6.1, Absolute Lymphs (auto) 1.80, Nucleated RBC % 0, Sodium 138, Potassium 3.8, Chloride 106, Carbon Dioxide 20.3 L, Anion Gap 12, BUN 18, Creatinine 0.90, Estim Creat Clear Calc 84.49, Est GFR (MDRD) Non-Af 95, BUN/Creatinine Ratio 19.9, Glucose 110 H, Hemoglobin A1c 6.2 H, Calcium 8.9, Triglycerides 144, Cholesterol 152, LDL Cholesterol, Calc 82, VLDL Cholesterol 29, HDL Cholesterol 42, Cholesterol/HDL Ratio 3.65 Radiography Diagnostic Testing: Radiology Impression Brain CT 09/19/24 14:33 IMPRESSION: 1. No evidence of intracranial hemorrhage or acute ischemia. 2. Minimal changes of chronic microvascular ischemia and volume loss. The findings and impression of the report were called directly to Dr. Steele at 2:50 p.m. Eastern standard time. Reading Location: [facility] Head/Neck CTA 09/19/24 14:38 IMPRESSION: 1. Atherosclerosis of the carotid bulb and proximal internal carotid arteries. Less than 50% narrowing on the left and less than 25% narrowing on the right. 2. No large vessel occlusion. No aneurysm or stenosis. Reading Location: [facility] Rhythm Strip Rhythm Strip: Sinus Rhythm Rate: 84 Ectopy: None NIHSS NIHSS Nursing Documentation NIHSS Nursing Documentation: Thrombolytic: Vital Signs & NIHSS Start: 09/19/24 14:43 Text: Assess and document vital signs and NIHSS Status: Active within 15 minutes of tenecteplase bolus administration Freq: [id number],Q2H Protocol: Activity Type Activity Date Activity User E-sign Co-sign Detail Recorded Client Recorded Date Recorded By Document 09/20/24 08:43 CG [id number] 09/20/24 09:28 CG 09/20/24 08:43 Vital Signs [Pulse] -Pulse Rate (60-100) 59 L -Pulse Location Monitor [Respirations] -Respiratory Rate (12-18) 16 -Respiratory rate source Monitor -Pulse Oximetry 98 -Oxygen Delivery Method Room Air [Blood Pressure] -Blood Pressure (90/60-120/80) 122/74 H -Blood Pressure Mean (mm Hg) 90 -Source Monitor -Position Semi-Fowlers -Blood Pressure Location Left Arm -Is the SBP > or = 180 No -Is the DBP > or = 105 No NIH Stroke Scale [NIHSS] A score of 0 is normal or asymptomatic . Total possible score is 42. Inpatient: RN or Physician to activate a stroke alert for onset of new stroke symptoms or with NIHSS increase >/= 3 points. Following change in neurological status, NIHSS will be performed per physician order or more frequently PRN. -1a. Level of Consciousness 0 - Alert; keenly responsive -1b. LOC Questions 0 - Answers BOTH questions correctly -1c. LOC Commands 0 - Performs BOTH tasks correctly -2. Best Gaze 0 - Normal -3. Visual 0 - No visual loss -4. Facial Palsy 0 - Normal symmetrical movements -5a. Left Arm 0 - No drift; arm holds 90 ( or 45) degrees for full 10 seconds -6a. Left Leg 0 - No drift; leg holds 30- degree position for full 5 seconds -6b. Right Leg 0 - No drift; leg holds 30- degree position for full 5 seconds -7. Limb Ataxia 0 - Absent -8. Sensory 1 - Mild-to- moderate sensory loss; -9. Best Language 0 - No aphasia; normal -10. Dysarthria 0 - Normal -11. Extinction and Inattention 0 - No abnormality -Total 1 Query Text:A score of 0 is normal or asymptomatic. Total possible score is 42 . ED: Notify Physician for NIHSS increase by > / = 3 points. Inpatient: RN or Physician to activate a stroke alert for NIHSS increase of > / = 3 points. NIHSS 1a. Level of Consciousness: 0 - Alert; keenly responsive 1b. LOC Questions: 0 - Answers BOTH questions correctly 1c. LOC Commands: 0 - Performs BOTH tasks correctly 2. Best Gaze: 0 - Normal 3. Visual: 0 - No visual loss 4. Facial Palsy: 0 - Normal symmetrical movements 5a. Left Arm: 0 - No drift; arm holds 90 (or 45) degrees for full 10 seconds 5b. Right Arm: 0 - No drift; arm holds 90 (or 45) degrees for full 10 seconds 6a. Left Le - No drift; leg holds 30-degree position for full 5 seconds 6b. Right Le - No drift; leg holds 30-degree position for full 5 seconds 7. Limb Ataxia: 0 - Absent 8. Sensory: 1 - Xkum-nc-[id number] sensory loss; 9. Best Language: 0 - No aphasia; normal 10. Dysarthria: 0 - Normal 11. Extinction and Inattention: 0 - No abnormality Total: 1
--- NOTE | 2024-09-20 10:15 | PCM.PN.HOSP ---
Subjective Subjective Doing well, NIH of 1 Objective Data Objective Data Vital Signs: Vital Signs Temp Pulse Resp BP Pulse Ox O2 Del Method 98.2 F 59 L 16 122/74 H 98 Room Air 09/20/24 07:43 09/20/24 08:43 09/20/24 08:43 09/20/24 08:43 09/20/24 08:43 09/20/24 08:43 Oxygen Delivery Method Room Air Weight: 168 lb 3.403 oz Body Mass Index (BMI) 24.1 Intake & Output: Intake and Output for Last 24 Hours 09/19/24 09/20/24 09/21/24 03:59 03:59 03:59 Intake Total 976.67 / 976.67 Output Total 1075 / 1075 275 / 275 Balance -98.33 / -98.33 -275 / -275 Lab / Micro Data 09/20/24 04:00 09/20/24 04:00 Labs: Laboratory Results - last 24 hr 09/19/24 14:45: WBC 8.3, RBC 4.69, Hgb 15.3, Hct 43.1, MCV 91.9, MCH 32.6 H, MCHC 35.5, RDW Std Deviation 40.7, RDW Coeff of Jacquelyn 12.1, Plt Count 284, MPV 9.8, Immature Gran % (Auto) 0.400, Neut % (Auto) 55.3, Lymph % (Auto) 30.1, [place] % (Auto) 12.0 H, Eos % (Auto) 1.5, Baso % (Auto) 0.7, Absolute Neuts (auto) 4.6, Absolute Lymphs (auto) 2.48, Nucleated RBC % 0, PT 13.8, INR 1.0, APTT 26.8, Sodium 140, Potassium 3.6, Chloride 104, Carbon Dioxide 21.8, Anion Gap 15, BUN 24 H, Creatinine 1.10, Estim Creat Clear Calc 66.95, Est GFR (MDRD) Non-Af 74, BUN/Creatinine Ratio 21.5 H, Glucose 122 H, Calcium 9.8, Troponin T High Sens < 6 09/19/24 17:25: Troponin T Hi Sens 2 Hr 7 09/19/24 18:40: Troponin T Hi Sens 4Hr 7 09/20/24 04:00: WBC 9.3, RBC 4.10 L, Hgb 13.0, Hct 38.3 L, MCV 93.4, MCH 31.7, MCHC 33.9, RDW Std Deviation 41.4, RDW Coeff of Jacquelyn 12.0, Plt Count 243, MPV 9.4, Immature Gran % (Auto) 0.200, Neut % (Auto) 65.5, Lymph % (Auto) 19.4, [place] % (Auto) 12.7 H, Eos % (Auto) 1.6, Baso % (Auto) 0.6, Absolute Neuts (auto) 6.1, Absolute Lymphs (auto) 1.80, Nucleated RBC % 0, Sodium 138, Potassium 3.8, Chloride 106, Carbon Dioxide 20.3 L, Anion Gap 12, BUN 18, Creatinine 0.90, Estim Creat Clear Calc 84.49, Est GFR (MDRD) Non-Af 95, BUN/Creatinine Ratio 19.9, Glucose 110 H, Hemoglobin A1c 6.2 H, Calcium 8.9, Triglycerides 144, Cholesterol 152, LDL Cholesterol, Calc 82, VLDL Cholesterol 29, HDL Cholesterol 42, Cholesterol/HDL Ratio 3.65 Radiography Diagnostic Testing: Radiology Impression Brain CT 09/19/24 14:33 IMPRESSION: 1. No evidence of intracranial hemorrhage or acute ischemia. 2. Minimal changes of chronic microvascular ischemia and volume loss. The findings and impression of the report were called directly to Dr. Steele at 2:50 p.m. Eastern standard time. Reading Location: [facility] Head/Neck CTA 09/19/24 14:38 IMPRESSION: 1. Atherosclerosis of the carotid bulb and proximal internal carotid arteries. Less than 50% narrowing on the left and less than 25% narrowing on the right. 2. No large vessel occlusion. No aneurysm or stenosis. Reading Location: [facility] Rhythm Strip Rhythm Strip: Sinus Rhythm Rate: 84 Ectopy: None Physical Exam Narrative General: Alert, Oriented x3, Cooperative, No apparent distress HEENT: Atraumatic, PERRLA, EOMI, Normocephalic Oral: Moist Mucosa Neck: Supple, No JVD Lungs: Diminished, Normal air movement, No rhonchi, No wheeze, No rales Cardiovascular: Regular rate, Regular Rhythm, Normal S1, Normal S2, No murmurs Abdomen: Soft, Non Tender, Non-Distended, No Hepato-splenomegaly Extremities: No edema, Capillary Refill Less than 3 Seconds Skin: No rashes, No breakdown Musculoskeletal: No Tenderness to Palpation of Joints or Extremities Neurological: No focal neurological deficits, moves all extremities, no facial droop, little bit of diminished sensation in his right face, no aphasia Psych/Mental Status: Normal Affect, Appropriate Assessment & Plan Assessment/Plan (1) Acute stroke due to ischemia: PLAN: Plan 1. Acute CVA s/p TNK - Symptoms have essentially resolved, after his TNK. NIH of 1 -Admit to ICU w/ strict blood pressure parameters ?Continue stroke protocol ?Appreciate neurology's assistance - CT scan today to check for bleed and then MRI tomorrow. If no bleed can likely restart aspirin -Echo ordered, PT/OT/speech -Atorvastatin 2. History of coronary artery disease -Patient on Plavix and aspirin -Received TN K, will hold as above can restart this evening if no bleed on CT DVT: SCDs Charges/Coding Visit Charges Inpatient E&M: 52172 Subs Hosp L2 NIHSS NIHSS Nursing Documentation NIHSS Nursing Documentation: Thrombolytic: Vital Signs & NIHSS Start: 09/19/24 14:43 Text: Assess and document vital signs and NIHSS Status: Active within 15 minutes of tenecteplase bolus administration Freq: [id number],Q2H Protocol: Activity Type Activity Date Activity User E-sign Co-sign Detail Recorded Client Recorded Date Recorded By Document 09/20/24 08:43 [id number] 09/20/24 09:28 CG 09/20/24 08:43 Vital Signs [Pulse] -Pulse Rate (60-100) 59 L -Pulse Location Monitor [Respirations] -Respiratory Rate (12-18) 16 -Respiratory rate source Monitor -Pulse Oximetry 98 -Oxygen Delivery Method Room Air [Blood Pressure] -Blood Pressure (90/60-120/80) 122/74 H -Blood Pressure Mean (mm Hg) 90 -Source Monitor -Position Semi-Fowlers -Blood Pressure Location Left Arm -Is the SBP > or = 180 No -Is the DBP > or = 105 No NIH Stroke Scale [NIHSS] A score of 0 is normal or asymptomatic . Total possible score is 42. Inpatient: RN or Physician to activate a stroke alert for onset of new stroke symptoms or with NIHSS increase >/= 3 points. Following change in neurological status, NIHSS will be performed per physician order or more frequently PRN. -1a. Level of Consciousness 0 - Alert; keenly responsive -1b. LOC Questions 0 - Answers BOTH questions correctly -1c. LOC Commands 0 - Performs BOTH tasks correctly -2. Best Gaze 0 - Normal -3. Visual 0 - No visual loss -4. Facial Palsy 0 - Normal symmetrical movements -5a. Left Arm 0 - No drift; arm holds 90 ( or 45) degrees for full 10 seconds -6a. Left Leg 0 - No drift; leg holds 30- degree position for full 5 seconds -6b. Right Leg 0 - No drift; leg holds 30- degree position for full 5 seconds -7. Limb Ataxia 0 - Absent -8. Sensory 1 - Mild-to- moderate sensory loss; -9. Best Language 0 - No aphasia; normal -10. Dysarthria 0 - Normal -11. Extinction and Inattention 0 - No abnormality -Total 1 Query Text:A score of 0 is normal or asymptomatic. Total possible score is 42 . ED: Notify Physician for NIHSS increase by > / = 3 points. Inpatient: RN or Physician to activate a stroke alert for NIHSS increase of > / = 3 points.
--- NOTE | 2024-09-20 15:21 | CT_ITS ---
PROCEDURE: CT BRAIN/HEAD WITHOUT CONTRAST 09/20/2024 REASON FOR EXAM: 24 HOUR POST TNK TECHNIQUE: CT BRAIN/HEAD WITHOUT CONTRAST Coronal and Sagittal reconstruction series were provided. One or more dose reduction techniques were used (e.g., Automated exposure control, adjustment of the mA and/or kV according to patient size, use of iterative reconstruction technique. RADIATION DOSE SUMMARY: CTDlvol: 47.06 mGy DLP: 907.97 mGycm COMPARISON: CT head/angiography 09/19/2024. FINDINGS: No acute intracranial hemorrhage, extra-axial collection, or mass effect. There is a small area of cortical acute infarct in the left parietal lobe (best seen on the sagittal reconstruction image 59). Normal ventricular caliber. Unremarkable orbits. Intact skull base and calvarium. Clear paranasal sinuses and mastoid air cells. CT/Brain/Head without Contrast IMPRESSION: No acute intracranial hemorrhage, extra-axial collection or mass-effect. Small area of acute infarct in the left parietal lobe is now evident. Reading Location: [id number]
--- NOTE | 2024-09-20 15:28 | PCM.PN.TICU ---
Objective Data Objective Data Vital Signs: Vital Signs Last response Temperature 36.8 C 09/20/24 12:43 Temperature Source Temporal 09/20/24 12:43 Pulse Rate 56 L 09/20/24 13:43 Pulse Strength Normal (2+) 09/19/24 20:38 Respiratory Rate 16 09/20/24 13:43 Respiratory Effort Normal, Non-Labored 09/20/24 04:00 Respiratory Depth Normal 09/20/24 04:00 Respiratory Pattern Normal 09/20/24 04:00 Blood Pressure 106/66 09/20/24 13:43 Blood Pressure Mean 79 09/20/24 13:43 Blood Pressure Source Monitor 09/20/24 13:43 Blood Pressure Position Semi-Fowlers 09/20/24 13:43 Blood Pressure Location Left Arm 09/20/24 13:43 Pulse Ox 97 09/20/24 13:43 Oxygen Delivery Method Room Air 09/20/24 13:43 I&O: I&O Last 24 Hours 09/19/24 09/20/24 09/20/24 23:59 11:59 23:59 Intake Total 0 / 0 / Output Total 575 / 575 775 / 975 200 / 975 Balance -575 / -575 1201.67 / 1001.67 -200 / 1001.67 I&O: Total Stay 09/19/24 14:32 thru 09/20/24 14:00 Intake Total Output Total 1550 Balance 426.67 Current Meds Ordered / Administered: Current meds ordered / Administered Generic Name Dose Route Start Last Admin Trade Name Freq PRN Reason Stop Dose Admin Acetaminophen 650 mg 09/19/24 14:43 Acetaminophen 325 Mg Tablet PO X1 PRN Temp > 99.6 F Acetaminophen 650 mg 09/19/24 16:43 09/19/24 20:10 Acetaminophen 325 Mg Tablet PO 650 mg Q6H PRN PRN Administration Pain 1-10 Or Fever >100.7 Albuterol Sulfate 2.5 mg 09/19/24 16:43 Albuterol 2.5 Mg/3 Ml Vial.Neb. INHALATION Q2H PRN PRN SOB &/OR WHEEZING Atorvastatin Calcium 80 mg 09/19/24 22:00 09/19/24 22:03 Atorvastatin Calcium 80 Mg Tablet PO 80 mg QHS JASE Administration Sodium Chloride 1,000 mls @ 100 mls/hr 09/19/24 14:45 09/20/24 11:16 IV 100 mls/hr .Q10H JASE Administration Melatonin 10 mg 09/19/24 16:43 Melatonin 10 Mg Tablet PO QHS PRN PRN INSOMNIA Ondansetron HCl 4 mg 09/19/24 16:43 Ondansetron 4 Mg/2 Ml Vial IV Q8H PRN PRN NAUSEA/VOMITING Senna/Docusate Sodium 2 tablet 09/19/24 16:43 Senna/Docusate Sodium 1 Tablet PO BID PRN PRN Constipation Sodium Chloride 10 - 40 ml 09/19/24 17:27 0.9% Saline Lock 10 Ml Syringe IV UD PRN SALINE FLUSH Lab / Micro Data 09/20/24 04:00 09/20/24 04:00 Labs: Laboratory Results - last 24 hr 09/19/24 14:45: Troponin T High Sens < 6 09/19/24 17:25: Troponin T Hi Sens 2 Hr 7 09/19/24 18:40: Troponin T Hi Sens 4Hr 7 09/20/24 04:00: WBC 9.3, RBC 4.10 L, Hgb 13.0, Hct 38.3 L, MCV 93.4, MCH 31.7, MCHC 33.9, RDW Std Deviation 41.4, RDW Coeff of Jacquelyn 12.0, Plt Count 243, MPV 9.4, Immature Gran % (Auto) 0.200, Neut % (Auto) 65.5, Lymph % (Auto) 19.4, Garrard % (Auto) 12.7 H, Eos % (Auto) 1.6, Baso % (Auto) 0.6, Absolute Neuts (auto) 6.1, Absolute Lymphs (auto) 1.80, Nucleated RBC % 0, Sodium 138, Potassium 3.8, Chloride 106, Carbon Dioxide 20.3 L, Anion Gap 12, BUN 18, Creatinine 0.90, Estim Creat Clear Calc 84.49, Est GFR (MDRD) Non-Af 95, BUN/Creatinine Ratio 19.9, Glucose 110 H, Hemoglobin A1c 6.2 H, Calcium 8.9, Triglycerides 144, Cholesterol 152, LDL Cholesterol, Calc 82, VLDL Cholesterol 29, HDL Cholesterol 42, Cholesterol/HDL Ratio 3.65 Rhythm Strip Rhythm Strip: Sinus Rhythm Rate: 84 Ectopy: None Imaging Radiology Impression Brain CT 09/19/24 14:33 IMPRESSION: 1. No evidence of intracranial hemorrhage or acute ischemia. 2. Minimal changes of chronic microvascular ischemia and volume loss. The findings and impression of the report were called directly to Dr. Steele at 2:50 p.m. Eastern standard time. Reading Location: [facility] Echocardiogram 09/19/24 16:43 Interpretation Summary The LV ejection fraction is 65 %. Normal left ventricle. Epicardial fat. Mild (1+) pulmonic valve insufficiency. Ordering Physician: Nicole Estrada Performed By: Nasrin Gomes RDCS Assessment and Plan . Assessment and plan: Chart and data reviewed Condition d/w ICU staff He is neurologically in tact F/U imaging is pending TTE largely unremarkable Likely resume anti-PLT soon We are available as needed.
--- NOTE | 2024-09-20 16:57 | CASEMGMT ---
Social Work Pt with possible stroke. PHQ9 completed with score of 0. S KANA Sebastian
--- NOTE | 2024-09-20 17:00 | CASEMGMT ---
Social Work SW?to room to meet with patient for initial transition planning/care coordination?assessment.?SW?introduced self and role at [facility].? Pt voices understanding and consents to?assessment.? Pt is A/Ox4 and answers all questions appropriately.?? Care providers, pharmacy, and demographics verified. PCP: none, provider list for [facility] give to pt Specialists: Edouard, cardiology Preferred Pharmacy: Manuel Ortega ([facility]) Insurance: [facility] Prescription Benefit:?yes Living Will/HPOA:?pt has completed and SW requested bring in for scanning into EMR LNOK: Dilcia and 2 dgts Living Arrangements: Pt lives with in 1 1/2 story home with all access to first floor. 3 steps into home. 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 Transportation:?Pt drives DME: ? cane HHC/SNF: none PLAN: Pt plans to return home with . Pt has no care needs at this time and denies need for HHC or outpt PT. Pt has not yet had therapy, but reports he is moving well and feels no deficits from possible stroke and has no concerns with returning home. KANA Sutton
[2024-09-21] VITALS: PULSE 70
[2024-09-21 00:27] VITALS: BMI 24.1
[2024-09-21 03:15] VITALS: BP 98/66; PULSE 66; RESP 16; TEMP 36.7; O2SAT 95
[2024-09-21] MEDS: 0.9% Saline Lock 10 ML Syringe IV ×2 (03:24→07:31)
[2024-09-21 03:34] LABS: Hematocrit 39.0 % (40-54); Hemoglobin 13.2 g/dL (13.0-16.5); Immature Granulocytes Count 0.040 X10^3/uL (0.0-0.0); Mean Corp Hgb Conc 33.8 g/dL (32-36); Mean Corpuscular Volume 93.8 fL (80-94); Mean Platelet Vol. 9.7 fl (6.2-12.0); NRBC Flagged by Analyzer 0 % (0-5); Platelet Count 243 K/mm3 (150-450); RBC Distribution Width CV 12.0 % (11.6-14.6); RBC Distribution Width SD 41.5 fl (35.1-43.9); Red Blood Count 4.16 M/mm3 (4.6-6.2); White Blood Count 10.5 K/mm3 (4.4-11.0)
[2024-09-21 03:53] LABS: Anion Gap 10 (5-15); BUN 15 mg/dL (4-19); BUN/Creat Ratio 16.1 RATIO (10-20); Calcium,Total 8.8 mg/dL (7.6-11.0); Carbon Dioxide 22.9 mmol/L (21.0-32.0); Chloride 105 mmol/L (98-108); Estimated Creatinine Clearance 82.65 ml/min (50-250); Glucose 107 mg/dL (70-99); Potassium 4.1 mmol/L (3.3-5.1)
[2024-09-21 04:00] VITALS: PULSE 59
[2024-09-21 04:11] VITALS: BMI 24.6
[2024-09-21 07:15] VITALS: BP 109/79; PULSE 65; RESP 18; TEMP 36.8; O2SAT 96
--- NOTE | 2024-09-21 09:00 | MRI_ITS ---
PROCEDURE: BRAIN WITHOUT CONTRAST 09/21/2024 REASON FOR EXAM: ACUTE CVA 24HRS AFTER TENECTEPLASE ADMINISTRATION TECHNIQUE: BRAIN WITHOUT CONTRAST Multiplanar and multisequence images were obtained. COMPARISON: CT head September 20, 2024. FINDINGS: Brain: Moderate cerebral atrophy and chronic periventricular white matter disease. Acute infarctions in the left parietal and to a lesser degree occipital lobes. No hemorrhage. No mass-effect or midline shift. Ventricles: No ventriculomegaly. Major Intracranial Vessels: Patent. Sinuses: Clear. Mastoids: Clear. MRI/Brain without Contrast IMPRESSION: Acute infarctions in the left parietal and to a lesser degree left occipital lo bes. No hemorrhage. Reading Location: [id number]
--- NOTE | 2024-09-21 11:42 | NEURO.PNOTE ---
Assessment and Plan: Neuro Assessment/Plan Telestroke Attending Progress Note (Audio-video interface) 64 y/o man with h/o CAD on ASA and plavix at home and recent tooth extraction on 09/18 (off antiplatelet since 09/13 and resumed only plavix on 09/19) p/w right facial droop and slurring of speech/aphasia. NIHSS-4 and TNK administered. Denied any vision changes or headache, no chest pain. CT head- no acute intracranial process. CTA- no LVO or significant stenosis. LDL-82. A1c-6.2. MRI Brain - left parietal stroke. TTE- EF-65%. Today, patient reports feeling better with NIHSS-1 for mild sensory loss in right face. Diagnosis: Acute ischemic stroke s/p TNK, Cryptogenic Plan: Continue ASA and plavix along with statin. Not clear if agitated saline was used during TTE to evaluate for PFO - If not then please obtain TTE w/ bubbles as an outpatient. Event monitor on discharge. OT/PT/SOUS CHEF I personally attended this patient and spent a total time of 30 minutes evaluating this patient including clinical assessment, review of chart, medical history imaging, and determining appropriate treatment and workup. Subject: Neurology Subjective Today, patient reports feeling better with NIHSS-1 for mild sensory loss in right face. EEG Results Procedure Details EEG Procedure Details: EMMANUEL ELY is a 64 year old M with a past medical history of , who presents for evaluation of Electroencephalogram on DATE at TIME Objective Data Objective Data Vital Signs: Vital Signs Temp Pulse Resp BP Pulse Ox O2 Del Method 98.3 F 65 18 109/79 96 Room Air 09/21/24 07:15 09/21/24 07:15 09/21/24 07:15 09/21/24 07:15 09/21/24 07:15 09/21/24 07:15 Oxygen Delivery Method Room Air Weight: 78 kg Body Mass Index (BMI) 24.6 Intake & Output: Intake and Output for Last 24 Hours 09/19/24 09/20/24 09/21/24 23:59 23:59 23:59 Intake Total 0 / 0 2750.00 / 2750.00 Output Total 575 / 575 975 / 975 Balance -575 / -575 1775.00 / 1775.00 Lab / Micro Data 09/21/24 03:23 09/21/24 03:23 Labs: Laboratory Results - last 24 hr 09/21/24 03:23: WBC 10.5, RBC 4.16 L, Hgb 13.2, Hct 39.0 L, MCV 93.8, MCH 31.7, MCHC 33.8, RDW Std Deviation 41.5, RDW Coeff of Jacquelyn 12.0, Plt Count 243, MPV 9.7, Immature Gran % (Auto) 0.400, Neut % (Auto) 67.0, Lymph % (Auto) 18.3 L, Whitman % (Auto) 11.4 H, Eos % (Auto) 2.1, Baso % (Auto) 0.8, Absolute Neuts (auto) 7.0, Absolute Lymphs (auto) 1.91, Nucleated RBC % 0, Sodium 139, Potassium 4.1, Chloride 105, Carbon Dioxide 22.9, Anion Gap 10, BUN 15, Creatinine 0.92, Estim Creat Clear Calc 82.65, Est GFR (MDRD) Non-Af 92, BUN/Creatinine Ratio 16.1, Glucose 107 H, Calcium 8.8 Radiography Diagnostic Testing: Radiology Impression Brain CT 09/20/24 15:21 IMPRESSION: No acute intracranial hemorrhage, extra-axial collection or mass-effect. Small area of acute infarct in the left parietal lobe is now evident. Reading Location: [facility] Brain MRI 09/21/24 09:00 IMPRESSION: Acute infarctions in the left parietal and to a lesser degree left occipital lobes. No hemorrhage. Reading Location: [facility] Rhythm Strip Rhythm Strip: Sinus Rhythm Rate: 84 Ectopy: None NIHSS NIHSS Nursing Documentation NIHSS Nursing Documentation: Thrombolytic: Vital Signs & NIHSS Start: 09/19/24 14:43 Text: Assess and document vital signs and NIHSS Status: Active within 15 minutes of tenecteplase bolus administration Freq: Q4H Protocol: Activity Type Activity Date Activity User E-sign Co-sign Detail Recorded Client Recorded Date Recorded By Document 09/21/24 07:15 [facility] [id number] 09/21/24 07:18 [facility] 09/21/24 07:15 Vital Signs [Temperature Protocol: VS] -Temperature (97.8 F-99.1 F) 98.3 F -Temperature Source Temporal [Pulse] -Pulse Rate (60-100) 65 -Pulse Location Monitor [Respirations] -Respiratory Rate (12-18) 18 -Respiratory rate source Monitor -Pulse Oximetry 96 -Oxygen Delivery Method Room Air [Blood Pressure] -Blood Pressure (90/60-120/80) 109/79 -Blood Pressure Mean (mm Hg) 89 -Source Monitor -Position Semi-Fowlers -Blood Pressure Location Left Arm -Is the SBP > or = 180 No -Is the DBP > or = 105 No NIH Stroke Scale [NIHSS] A score of 0 is normal or asymptomatic . Total possible score is 42. Inpatient: RN or Physician to activate a stroke alert for onset of new stroke symptoms or with NIHSS increase >/= 3 points. Following change in neurological status, NIHSS will be performed per physician order or more frequently PRN. -1a. Level of Consciousness 0 - Alert; keenly responsive -1b. LOC Questions 0 - Answers BOTH questions correctly -1c. LOC Commands 0 - Performs BOTH tasks correctly -2. Best Gaze 0 - Normal -3. Visual 0 - No visual loss -4. Facial Palsy 0 - Normal symmetrical movements -5a. Left Arm 0 - No drift; arm holds 90 ( or 45) degrees for full 10 seconds -5b. Right Arm 0 - No drift; arm holds 90 ( or 45) degrees for full 10 seconds -6a. Left Leg 0 - No drift; leg holds 30- degree position for full 5 seconds -6b. Right Leg 0 - No drift; leg holds 30- degree position for full 5 seconds -7. Limb Ataxia 0 - Absent -8. Sensory 1 - Mild-to- moderate sensory loss; -9. Best Language 0 - No aphasia; normal -10. Dysarthria 0 - Normal -11. Extinction and Inattention 0 - No abnormality -Total 1 Query Text:A score of 0 is normal or asymptomatic. Total possible score is 42 . ED: Notify Physician for NIHSS increase by > / = 3 points. Inpatient: RN or Physician to activate a stroke alert for NIHSS increase of > / = 3 points. NIHSS 1a. Level of Consciousness: 0 - Alert; keenly responsive 1b. LOC Questions: 0 - Answers BOTH questions correctly 1c. LOC Commands: 0 - Performs BOTH tasks correctly 2. Best Gaze: 0 - Normal 3. Visual: 0 - No visual loss 4. Facial Palsy: 0 - Normal symmetrical movements 5a. Left Arm: 0 - No drift; arm holds 90 (or 45) degrees for full 10 seconds 5b. Right Arm: 0 - No drift; arm holds 90 (or 45) degrees for full 10 seconds 6a. Left Le - No drift; leg holds 30-degree position for full 5 seconds 6b. Right Le - No drift; leg holds 30-degree position for full 5 seconds 7. Limb Ataxia: 0 - Absent 8. Sensory: 0 - Normal; no sensory loss 9. Best Language: 0 - No aphasia; normal 10. Dysarthria: 0 - Normal 11. Extinction and Inattention: 0 - No abnormality Total: 0
--- NOTE | 2024-09-21 11:55 | PCM.DC ---
Discharge Instructions DC O2, CPAP, BIPAP needs Home O2 Discharge instructions: No Dressing / Incision Discharge Activity: Return to Normal Activity Dressing / Incision Call your doctor if you observe: Fever of 101 or Higher, Shortness of breath, Dizziness, Fainting spells, Swelling in the ankles, Chest pain and Increased palpitations (irregular heartbeat) Follow Up Care Test Results: Test results from this visit will be discussed in further detail at your follow-up appointment, if applicable. Discharge Plan Admission Admit Date/Time: 09/19/24 16:19 Attending Provider: Juan Fulton Primary Care Provider: Care Physician,No Primary Consulting Providers: Obdulio Shaikh; Nader Abreu; Flash Baez; Guero Hart; Dev Hallman; Mike Bella; Samuel Man; Maryann Almaguer; Phan Brady; Michael Mahajan; Gordon Chowdhury; Janelle Yeboah; Ed Carranza; Yolanda Smith; Kavita,Onel; Vazquez Oviedo; Pascual Oreilly; Lydia,Boris; Christine Jones; Jostin Gustafson; Dave Sloan; Zachary Nowak; Lowell Nicholson; Nelson Spicre; Mendy Hoffman NP; Cherelle Manuel; Rick Bull; Scott Yuen; Julia Cooney; Ashlee Mauro; Jeannie Malave; Martell Cotter; Andreina Stovall; Isaiah Dong; Chepe Nath; Arnold Barr; Sally Marley; Dyllan Sarah; Page Cobian; Brandyn Marcelino; Lorenzo Underwood; Brandt Small; Marita Castillo; Berny Beltran; Indira Dyer; Christianne Lopez; Nicole Estrada Instructions Patient Instructions: ED Stroke, Completed Discharge Orders/Prescriptions Prescriptions: Continued clopidogrel 75 mg tablet 75 mg PO DAILY aspirin 81 mg tablet,delayed release (DR/EC) 81 mg PO DAILY rosuvastatin 40 mg tablet 40 mg PO DAILY Other Ambulatory Orders: 30 Day Event Recorder Preventi (Urgent) Timeframe: 1 Day Facility: [facility] - Location: Cardiovascular Services Ordered By: Dr. Juan Fulton Referrals / Follow Up: Care Physician,No Primary [Primary Care Provider] - NOT,DEFINED [Non-Staff] - Disposition Disposition (needs filled in before D/C Order can be placed): Home, Self Care
[2024-09-21 11:57] VITALS: BP 109/79; PULSE 65; RESP 18; TEMP 36.8; O2SAT 96
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
== END 2024-09-21 12:50 | disposition home or self-care (01) | DRG 63 ==
LOC: ED 15:14 → ICU 15:41
PROVIDERS: Admitting Provider Internal Medicine; Emergency Provider Emergency Medicine; Visit Provider Family Medicine
DX: I63.9 Cerebral infarction, unspecified (principal); I25.10 Atherosclerotic heart disease of native coronary artery without angina pectoris; Z79.82 Long term (current) use of aspirin; Z79.02 Long term (current) use of antithrombotics/antiplatelets; R29.704 NIHSS score 4; Z87.891 Personal history of nicotine dependence
CPT/HCPCS: 70450; 70496; 70498; 70551; 80048; 80061; 83036; 84484; 85025; 85610; 85730; 92610; 93005; 93306; 97161; 97802; 99285; J3101; Q9967; A4216